=== PATIENT | female | born 1980 | race Caucasian/White ===

== ENCOUNTER 2024-12-02 13:40 | Outpatient (CLI) | payer OTHER, SELFPAY ==
--- NOTE | ~2024-12-02 | MM_ITS ---
EXAMINATION: MM screening julee BI w renee HISTORY: Screening TECHNIQUE: Craniocaudal and mediolateral oblique 3-D tomosynthesis images were obtained and synthetic 2-D images were generated. CAD analysis was submitted and interpreted. COMPARISON: No prior mammogram is available for comparison at this institution. BREAST PARENCHYMAL COMPOSITION: The breasts are heterogeneously dense, which may obscure small masses. FINDINGS: No suspicious calcifications or architectural distortion. Bilateral breast masses. IMPRESSION: 1. Bilateral breast masses. The study is incomplete. A bilateral diagnostic mammogram and a bilateral diagnostic breast ultrasound is recommended. BI-RADS 0: Incomplete-Need additional imaging evaluation. Reviewed, dictated and finalized at location [facility]. IMPRESSION: 1. Bilateral breast masses. The study is incomplete. A bilateral diagnostic julee mogram and a bilateral diagnostic breast ultrasound is recommended. BI-RADS 0: Incomplete-Need additional imaging evaluation.
== END 2024-12-02 13:41 | disposition home or self-care (01) ==
PROVIDERS: PCP Obstetrics & Gynecology; Visit Provider Obstetrics & Gynecology
DX: Z12.31 Encounter for screening mammogram for malignant neoplasm of breast (principal); R92.8 Other abnormal and inconclusive findings on diagnostic imaging of breast
CPT/HCPCS: 77063; 77067